=== PATIENT | female | born 1995 | race Caucasian/White ===

== ENCOUNTER 2023-05-06 11:49 | Emergency (ER) | payer OTHER ==
[~2023-05-06] VITALS: Ht 162.6 cm; Wt 86.2 kg
[2023-05-06 11:53] VITALS: BP_SYST 152; PULSE 77; RESP 19; TEMP 98; O2SAT 98
== END 2023-05-06 12:43 | disposition home or self-care (01) ==
LOC: SED 11:49
DX: S16.1XXA Strain of muscle, fascia and tendon at neck level, initial encounter (principal); S00.03XA Contusion of scalp, initial encounter; Z91.010 Allergy to peanuts; Z79.899 Other long term (current) drug therapy; W07.XXXA Fall from chair, initial encounter; Y93.89 Activity, other specified; Y92.89 Other specified places as the place of occurrence of the external cause; Y99.8 Other external cause status
CPT/HCPCS: 99282

== ENCOUNTER 2023-07-10 18:37 | Emergency (ER) | payer BC, MEDICAID ==
[~2023-07-10] VITALS: Ht 162.6 cm; Wt 90.7 kg
[2023-07-10 18:56] VITALS: BP_SYST 163; PULSE 77; RESP 18; TEMP 98.3; O2SAT 100
[2023-07-10 20:55] LABS: HEMATOCRIT 40.1 % (36-48); HEMOGLOBIN 13.8 g/dL (12.0-16.0); MEAN CORPUSCULAR HEMOGLOBIN 29 pg (27-31); MEAN CORPUSCULAR HGB CONC 35 % (32-36); MEAN CORPUSCULAR VOLUME 85 fL (79.0-98.0); PLATELET COUNT (AUTO) 359 K/uL (130-430); RED BLOOD CELL COUNT(AUTO) 4.74 MIL/uL (4.2-6.2); RED CELL DISTRIBUTION WIDTH 12.9 % (9.0-15.0); WHITE BLOOD COUNT (AUTO) 11.8 K/uL (4.8-10.8)
[2023-07-10 21:04] LABS: ANION GAP 9 (5-15); CALCIUM 9.1 mg/dL (8.4-11.0); CARBON DIOXIDE 29 mmol/L (23-29); CHLORIDE 104 mmol/L (98-107); CREATININE 0.75 mg/dL (0.55-1.30); GFR AFRICAN AMERICAN 120 mL/min (>90); GFR NON AFRICAN-AMERICAN 99 mL/min (>90); GLUCOSE 97 mg/dL (74-106); POTASSIUM 3.9 mmol/L (3.5-5.1); SODIUM SERUM 142 mmol/L (136-145); UREA NITROGEN, BLOOD 8 mg/dL (8-21)
[2023-07-10 21:05] LABS: SERUM HCG (QUALITATIVE) NEGATIVE (NEGATIVE)
[2023-07-10 21:08] LABS: ATYPICAL LYMPHOCYTES % 11 % (0-0); BAND % (MANUAL) 0 % (0-6); BASOPHILS % (MANUAL) 0 % (0-2); EOSINOPHILS % (MANUAL) 4 % (0-7); LYMPHOCYTES % (MANUAL) 43 % (20-46); MONOCYTES % (MANUAL) 5 % (0-11); PLATELET ESTIMATE ADEQUATE (ADEQUATE)
[2023-07-10 21:42] VITALS: BP_SYST 136; PULSE 84; RESP 16; TEMP 97.6; O2SAT 97
== END 2023-07-10 21:40 | disposition home or self-care (01) ==
LOC: SED 18:37
DX: R07.81 Pleurodynia (principal); R06.02 Shortness of breath; F17.210 Nicotine dependence, cigarettes, uncomplicated; Z91.018 Allergy to other foods; Z79.899 Other long term (current) drug therapy
CPT/HCPCS: 36415; 71045; 80048; 84484; 84703; 85007; 85027; 85379; 93005; 99285

== ENCOUNTER 2023-10-13 16:11 | Inpatient (IN) | payer BC, MEDICAID, OTHER ==
[~2023-10-13] VITALS: Ht 162.6 cm; Wt 95.3 kg
[2023-10-13 16:11] VITALS: BP_SYST 140; PULSE 91; RESP 19; TEMP 98.2; O2SAT 99
[2023-10-13] MEDS ORDERED: iohexoL 350 mgI/mL, 100 ML INFUS..BTL IV ONE (16:27)
[2023-10-13 17:08] LABS: ANION GAP 8 (5-15); CALCIUM 8.5 mg/dL (8.4-11.0); CARBON DIOXIDE 24 mmol/L (23-29); CHLORIDE 103 mmol/L (98-107); CREATININE 0.69 mg/dL (0.55-1.30); GFR AFRICAN AMERICAN 131 mL/min (>90); GLUCOSE 112 mg/dL (74-106); POTASSIUM 3.2 mmol/L (3.5-5.1); SODIUM SERUM 135 mmol/L (136-145); UREA NITROGEN, BLOOD 9 mg/dL (8-21)
[2023-10-13 17:09] LABS: GFR NON AFRICAN-AMERICAN 108 mL/min (>90)
[2023-10-13 17:11] LABS: PROTHROMBIN TIME 10.1 SECS (9.5-12.5)
[2023-10-13 17:17] LABS: ALANINE AMINOTRANSFERASE 18 U/L (12-78); ALBUMIN 3.2 g/dL (3.4-4.8); ASPARTATE AMINOTRANSFERASE 14 U/L (10-37); BILIRUBIN,DIRECT < 0.1 mg/dL (0.0-0.3); CREATINE KINASE, TOTAL 76 U/L (26-192); TOTAL BILIRUBIN 0.1 mg/dL (0.0-1.0)
[2023-10-13 17:19] LABS: ALCOHOL, BLOOD < 3 mg/dL (<10)
[2023-10-13 17:25] LABS: BASOPHILS % (AUTO) 0.4 % (0.0-2.0); EOSINOPHILS # (AUTO) 0.2 K/uL (0.0-0.4); EOSINOPHILS % (AUTO) 2.5 % (0.0-4.0); HEMATOCRIT 36.5 % (36-48); HEMOGLOBIN 12.7 g/dL (12.0-16.0); LYMPHOCYTES # (AUTO) 3.8 K/uL (1.0-5.5); LYMPHOCYTES % (AUTO) 41.4 % (20.5-51.5); MEAN CORPUSCULAR HEMOGLOBIN 30 pg (27-31); MEAN CORPUSCULAR HGB CONC 35 % (32-36); MEAN CORPUSCULAR VOLUME 85 fL (79.0-98.0); MONOCYTES # (AUTO) 0.5 K/uL (0.0-1.0); MONOCYTES % (AUTO) 5.3 % (1.7-9.3); NEUTROPHILS # (AUTO) 4.6 K/uL (1.8-7.7); NEUTROPHILS % (AUTO) 50.4 % (40.0-70.0); PLATELET COUNT (AUTO) 321 K/uL (130-430); RED BLOOD CELL COUNT(AUTO) 4.28 MIL/uL (4.2-6.2); RED CELL DISTRIBUTION WIDTH 12.5 % (9.0-15.0); WHITE BLOOD COUNT (AUTO) 9.1 K/uL (4.8-10.8)
[2023-10-13] MEDS ORDERED: niCARdipine 25 MG in D5W 240 ML IV PRN (17:30)
[2023-10-13] MEDS: TENECTEPLASE 50 MG VIAL IV ONE (18:04)
[2023-10-13] MEDS ORDERED: LABETALOL HCL 20 MG/4 ML CARTRIDGE IVP ONE (18:43)
[2023-10-13] MEDS ORDERED: ESCI-6 PO (19:55)
[2023-10-13] MEDS ORDERED: ROPI0.2535 PO (19:55)
[2023-10-13] MEDS ORDERED: GABA-529 PO (19:55)
[2023-10-13] MEDS ORDERED: ACETAMINOPHEN 500 MG TABLET ONE (20:00)
[2023-10-13] MEDS: NACL 0.9% 1,000 ML IV SCH (20:12)
[2023-10-13] MEDS: ACETAMINOPHEN 500 MG TABLET PO ONE (20:13)
[2023-10-13 21:10] VITALS: BP_SYST 131; PULSE 74; RESP 18; TEMP 97.7; O2SAT 98
[2023-10-13 22:00] VITALS: BP_SYST 122; PULSE 72; PULSE 78; RESP 16; RESP 18; TEMP 98.9; O2SAT 98
[2023-10-13 23:00] VITALS: BP_SYST 147; PULSE 89; RESP 17; O2SAT 98
[2023-10-14] VITALS (21 sets, daily range): BP systolic 98–139; PULSE 65–95; RESP 11–27; TEMP 97.4–98.6; O2SAT 95–99
[2023-10-14 05:39] LABS: BASOPHILS % (AUTO) 0.3 % (0.0-2.0); EOSINOPHILS # (AUTO) 0.3 K/uL (0.0-0.4); EOSINOPHILS % (AUTO) 2.6 % (0.0-4.0); HEMATOCRIT 35.6 % (36-48); HEMOGLOBIN 12.4 g/dL (12.0-16.0); LYMPHOCYTES # (AUTO) 4.7 K/uL (1.0-5.5); LYMPHOCYTES % (AUTO) 48.9 % (20.5-51.5); MEAN CORPUSCULAR HEMOGLOBIN 30 pg (27-31); MEAN CORPUSCULAR HGB CONC 35 % (32-36); MEAN CORPUSCULAR VOLUME 85 fL (79.0-98.0); MONOCYTES # (AUTO) 0.4 K/uL (0.0-1.0); MONOCYTES % (AUTO) 4.6 % (1.7-9.3); NEUTROPHILS # (AUTO) 4.2 K/uL (1.8-7.7); NEUTROPHILS % (AUTO) 43.6 % (40.0-70.0); PLATELET COUNT (AUTO) 308 K/uL (130-430); RED BLOOD CELL COUNT(AUTO) 4.19 MIL/uL (4.2-6.2); RED CELL DISTRIBUTION WIDTH 12.7 % (9.0-15.0); WHITE BLOOD COUNT (AUTO) 9.6 K/uL (4.8-10.8)
[2023-10-14 06:02] LABS: CALCIUM 8.4 mg/dL (8.4-11.0); CREATININE 0.63 mg/dL (0.55-1.30); POTASSIUM 3.6 mmol/L (3.5-5.1); TOTAL BILIRUBIN 0.3 mg/dL (0.0-1.0); TOTAL PROTEIN, SERUM 6.4 g/dL (6.4-8.3)
[2023-10-14 06:05] LABS: PROTHROMBIN TIME 10.3 SECS (9.5-12.5)
[2023-10-14] MEDS: ACETAMINOPHEN 325 MG TABLET PO PRN (09:49)
[2023-10-14] MEDS ORDERED: GADOTERATE MEGLUMINE 7.5 MMOL/15 ML VIAL IV ONE (10:37)
[2023-10-14 12:22] LABS: BILIRUBIN,URINE NEGATIVE (NEGATIVE); CLARITY/URINE CLEAR (CLEAR); COLOR,URINE YELLOW (YELLOW); GLUCOSE,URINE NEGATIVE (NEGATIVE); KETONES,URINE NEGATIVE (NEGATIVE); LEUKOCYTE ESTERASE ,URINE TRACE (NEGATIVE); NITRITE, URINE NEGATIVE (NEGATIVE); PH,URINE 7.5 (5.0-8.0); PROTEIN URINE NEGATIVE (NEGATIVE); UROBILINOGEN,URINE 0.2 (0.2-1.0)
[2023-10-14 12:30] LABS: BLOOD, URINE TRACE (NEGATIVE)
[2023-10-14 12:36] LABS: BARBITURATE, URINE NEGATIVE (NEG <=200); BENZODIAZEPINE, URINE NEGATIVE (NEG <=150); CANNABINOID, URINE NEGATIVE (NEG <=50); COCAINE, URINE NEGATIVE (NEG <=150); METHAMPHETAMINES SCREEN,URINE NEGATIVE (NEG <=500); OPIATE, URINE NEGATIVE (NEG <=100); PHENCYCLIDINE SCREEN,URINE NEGATIVE (NEG <=25); UR TRICYCLIC ANTIDEPRESSANTS NEGATIVE (NEG <=300); URINE AMPHETAMINE NEGATIVE (NEG <=500); URINE METHADONE NEGATIVE (NEG <=200); URINE OXYCODONE SCREEN NEGATIVE (NEG <=100)
[2023-10-14 12:42] LABS: BACTERIA,URINE FEW /HPF (None Seen)
[2023-10-14] MEDS: NORMAL SALINE 5 ML DISP.SYRIN IVF SCH (15:58)
[2023-10-15 01:24] VITALS: BP_SYST 123; PULSE 70; RESP 19; TEMP 97.2; O2SAT 99
[2023-10-15 08:00] VITALS: BP_SYST 114; PULSE 69; RESP 18; TEMP 97.9; O2SAT 98
[2023-10-15 12:00] VITALS: BP_SYST 121; PULSE 78; RESP 18; TEMP 98.1; O2SAT 100
[2023-10-15 16:00] VITALS: BP_SYST 113; PULSE 68; RESP 20; TEMP 98; O2SAT 98
[2023-10-15 17:16] VITALS: BP_SYST 113; PULSE 68; RESP 20; TEMP 98; O2SAT 98
[2023-10-15] MEDS ORDERED: ASPI-1393 PO (17:56)
[2023-10-16] MEDS ORDERED: ASPIRIN 81 MG TAB.CHEW PO SCH (09:00)
== END 2023-10-15 18:35 | disposition home or self-care (01) | DRG 62 ==
LOC: SED 16:11 → SIC 19:42 → STU 10-14 22:02
PROVIDERS: ADMIT Family Medicine; ATTEND Family Medicine
DX: I63.9 Cerebral infarction, unspecified (principal); G81.94 Hemiplegia, unspecified affecting left nondominant side; I10 Essential (primary) hypertension; E88.810 Metabolic syndrome; G25.81 Restless legs syndrome; E66.01 Morbid (severe) obesity due to excess calories; F17.200 Nicotine dependence, unspecified, uncomplicated; R29.713 NIHSS score 13; Z91.018 Allergy to other foods; Z79.899 Other long term (current) drug therapy
CPT/HCPCS: 36415; 70450-TC; 70496; 70498; 70553; 71045; 80048; 80053; 80076; 80307; 81000; 81001; 81015; 82550; 82948; 83037; 83605; 84484; 84702; 85025; 85610; 85730; 86886; 86900; 86901; 87081; 92523; 93005; 95816; 97110-GP; 97112-GP; 97116-GP; 97530-GP; 99291; A9575; G0378; G0482; Q9967